=== PATIENT | female | born 1960 | race Caucasian/White ===

== ENCOUNTER 2016-06-01 04:39 | Emergency (ER) | payer OTHER ==
[~2016-06-01] VITALS: Ht 152.4 cm; Wt 66.5 kg
[2016-06-01 04:52] VITALS: Ht 152.4 cm; Wt 66.5 kg
[2016-06-01 06:30] LABS: URINE BLOOD (Dip) POC Trace-lysed (NEGATIVE)
[2016-06-01] MEDS ORDERED: HYDROCODONE/APAP (5/325) TAB PO ONE (06:30)
[2016-06-01 06:53] LABS: BASOPHILS % 0.3 % (0.0-2.0); EOSINOPHILS # 0.2 10^3/ul (0.0-0.5); EOSINOPHILS % 1.5 % (0.0-7.0); HEMATOCRIT 37.2 % (37.0-47.0); HEMOGLOBIN 12.6 g/dl (12.0-16.0); LYMPHOCYTES # 3.2 10^3/ul (0.8-2.9); LYMPHOCYTES % 27.1 % (15.0-51.0); MEAN CORPUSCULAR HEMOGLOBIN 28.6 pg (29.0-33.0); MEAN CORPUSCULAR VOLUME 84.3 fl (82.0-101.0); MEAN PLATELET VOLUME 8.6 fl (7.4-10.4); MONOCYTE # 0.9 10^3/ul (0.3-0.9); MONOCYTES % 7.9 % (0.0-11.0); NEUTROPHIL # 7.4 10^3/ul (1.6-7.5); NEUTROPHILS % 63.2 % (39.0-77.0); PLATELET COUNT 308 10^3/UL (140-440); RED BLOOD COUNT 4.41 10^6/ul (4.20-5.40); RED CELL DISTRIBUTION WIDTH 13.8 % (11.5-14.5); UNCORRECTED WBC 11.7 10^3/ul (4.8-10.8); WHITE BLOOD COUNT 11.7 10^3/ul (4.8-10.8)
[2016-06-01 06:54] LABS: ADD UMIC YES; URINE BILIRUBIN (Dip) NEGATIVE (NEGATIVE); URINE BLOOD (Dip) TRACE (NEGATIVE); URINE COLOR LT. YELLOW (YELLOW); URINE GLUCOSE (Dip) NEGATIVE (NEGATIVE); URINE KETONES (Dip) NEGATIVE (NEGATIVE); URINE LEUKOCYTE ESTERASE (Dip) 1+ (NEGATIVE); URINE NITRITE (Dip) NEGATIVE (NEGATIVE); URINE TOTAL PROTEIN (Dip) TRACE (NEGATIVE); URINE UROBILINOGEN (Dip) 0.2 E.U./dL (0.1-1.0)
--- NOTE | 2016-06-01 07:04 | RADRPT ---
PROCEDURE: CT Abdomen and Pelvis without contrast. CLINICAL INDICATION: Left lower quadrant pain. TECHNIQUE: Routine axial tomographic images of the abdomen and pelvis were obtained from the domes the diaphragm to the symphysis pubis. The patient was scanned withoutoral or intravenous contrast. Coronal and sagittal reformatted images were obtained from the axial source images. Images were re viewed on a high-resolution PACS workstation. The total exam CTDI equals 14.05 mGy and the total exa m DLP equals 794.88 mGy-cm. One or more of the following dose reduction techniques were used: Auto mated exposure control, adjustment of the mA and / or kV according to patient size, or use of iterat félix reconstruction technique. COMPARISON: CT abdomen and pelvis dated 10/16/2013 FINDINGS: The visualized portions of the lung bases demonstrate mild bilateral basilar atelectasis. Evaluat ion of the intra-abdominal solid organs is limited on this noncontrast examination. The liver appea rs normal in size. There is no intra or extrahepatic biliary dilatation. The gallbladder is unrema rkable by CT criteria. The spleen, pancreas, and adrenal glands are unremarkable. The kidneys are symmetric in size. No renal, ureteral, or bladder calculi are identified. No perine phric inflammatory changes are identified. The urinary bladder is grossly unremarkable. The bowel demonstrates normal course and caliber. There is no evidence of bowel obstruction. The ap pendix is unremarkable. There are diverticula throughout the colon. The uterus and adnexa are dc ssly unremarkable. No intraperitoneal free fluid, free air or abscess is identified. The aorta is n ormal in caliber and contains vascular calcifications. No retroperitoneal, mesenteric, or inguinal lymphadenopathy is identified. The osseous structures demonstrate degenerative changes at L5-S1 with intervertebral disc space narr owing and discogenic endplate changes. No significant subcutaneous soft tissue abnormalities are s een. IMPRESSION: 1. Limited, noncontrast CT of the abdomen and pelvis. No acute intra-abdominal abnormality identifie d. 2. Sigmoid diverticulosis. 3. Senescent changes with aortic atherosclerosis and degenerative changes of the spine. RPTAT: HH .Aislinn Aburto MD, MD Date Time Electronically viewed and signed by .Aislinn Aburto MD, on 06/01/2016 07:03 .Mary/
[2016-06-01 07:05] LABS: ALBUMIN 3.8 g/dl (3.3-4.9)
[2016-06-01 07:06] LABS: POTASSIUM 4.1 mmol/L (3.5-5.1)
[2016-06-01 07:08] LABS: ALBUMIN/GLOBULIN RATIO 0.86; BILIRUBIN,INDIRECT 0.1 mg/dl (0-1.1); BILIRUBIN,TOTAL 0.1 mg/dl (0.2-1.3); CALCIUM 9.3 mg/dl (8.4-10.2); CONDITION 1; CREATININE 0.67 mg/dl (0.44-1.00); TOTAL PROTEIN 8.2 g/dl (6.1-8.1)
[2016-06-01] MEDS ORDERED: CEPH-443 PO (07:18)
[2016-06-01] MEDS ORDERED: HYDR-906 PO (07:18)
--- NOTE | 2016-06-01 07:23 | ERD ---
ER Documentation Chief Complaint Date/Time DATE: 06/01/16 TIME: 07:21 Chief Complaint pt reports pain with urination HPI 56-year-old female comes in with suprapubic abdominal pain that radiates to her left lower quadrant over the past 1 day. She denies fever, chills, nausea, vomiting. ROS All systems reviewed and are negative except as per history of present illness. Medications Home Meds Active Scripts Hydrocodone/Acetaminophen ([place] 5-325 Tablet) 1 Each Tablet, 1 TAB PO Q6H Y for PAIN, #10 TAB Prov:AMANDA HAMILTON PA-C 06/01/16 Cephalexin* (Keflex*) 500 Mg Capsule, 500 MG PO TID for 7 Days, CAP Prov:AMANDA HAMILTON PA-C 06/01/16 Reported Medications [None] No Conflict Check 04/15/16 Allergies Allergies: Coded Allergies: morphine (Verified Allergy, Unknown, depression, 06/01/16) PMhx/Soc Medical and Surgical Hx: pt denies Surgical Hx History of Surgery: Yes (TUBAL LIGATION) Anesthesia Reaction: No Hx Neurological Disorder: No Hx Respiratory Disorders: No Hx Cardiac Disorders: No Hx Psychiatric Problems: No Hx Miscellaneous Medical Probl: No Hx Alcohol Use: No Hx Substance Use: No Hx Tobacco Use: No Physical Exam Vitals Vital Signs Date Time Temp Pulse Resp B/P Pulse Ox O2 Delivery O2 Flow Rate FiO2 06/01/16 04:52 98.0 78 20 134/68 95 Physical Exam General: Well-developed, well-nourished. The patient appears in no acute distress. HEENT: Head is normocephalic, atraumatic. No scleral icterus. Neck: Supple. Nontender. Lungs: Clear to auscultation. Normal air movement. Heart: Regular rate and rhythm. S1 and S2 are normal. No murmurs, gallops, or rubs. Abdomen: Soft, tender in left lower quadrant and suprapubic region, no rebound pain, no masses, no McBurney's tenderness, negative Vazquez sign nondistended. Bowel sounds are normoactive. Extremities: No clubbing or cyanosis. Normal pulses. Moving extremities x 4. No weakness. Neurologic: Alert and oriented 3. No focal deficits. Skin: Normal turgor. No rash or lesions. Result Diagram: 06/01/16 0632 06/01/16 0632 Results 24 hrs Laboratory Tests Test 06/01/16 06:31 06/01/16 06:32 Bedside Urine Blood Trace-lysed Bedside Urine Glucose (UA) Negative Bedside Urine Ketones (LAB) Negative Bedside Urine Leukocyte Esterase (L Trace Bedside Urine Nitrite (LAB) Negative Bedside Urine Protein (LAB) 1+ Bedside Urine pH (LAB) 6.5 Alanine Aminotransferase (ALT/SGPT) 25IU/L Albumin 3.8g/dl Albumin/Globulin Ratio 0.86 Alkaline Phosphatase 126IU/L Anion Gap 17 Aspartate Amino Transf (AST/SGOT) 18IU/L Basophils # 0.010^3/ul Basophils % 0.3% Blood Morphology Comment Blood Urea Nitrogen 12mg/dl Calcium Level 9.3mg/dl Carbon Dioxide Level 29mmol/L Chloride Level 102mmol/L Creatinine 0.67mg/dl Direct Bilirubin 0.00mg/dl Eosinophils # 0.210^3/ul Eosinophils % 1.5% Globulin 4.40g/dl Glucose Level 120mg/dl Hematocrit 37.2% Hemoglobin 12.6g/dl Indirect Bilirubin 0.1mg/dl Lipase 38U/L Lymphocytes # 3.210^3/ul Lymphocytes % 27.1% Mean Corpuscular Hemoglobin 28.6pg Mean Corpuscular Hemoglobin Concent 34.0g/dl Mean Corpuscular Volume 84.3fl Mean Platelet Volume 8.6fl Monocytes # 0.910^3/ul Monocytes % 7.9% Neutrophils # 7.410^3/ul Neutrophils % 63.2% Nucleated Red Blood Cells # 0.010^3/ul Nucleated Red Blood Cells % 0.0/100WBC Platelet Count 03362^3/UL Potassium Level 4.1mmol/L Red Blood Count 4.4110^6/ul Red Cell Distribution Width 13.8% Sodium Level 144mmol/L Total Bilirubin 0.1mg/dl Total Protein 8.2g/dl Urine Bilirubin NEGATIVE Urine Clarity CLEAR Urine Color LT. YELLOW Urine Epithelial Cells MODERATE Urine Glucose NEGATIVE% Urine Hemoglobin TRACE Urine Ketones NEGATIVE Urine Leukocyte Esterase 1+ Urine Microscopic RBC 2-5/HPF Urine Microscopic WBC 5-10/HPF Urine Nitrite NEGATIVE Urine Specific [place] 1.010 Urine Total Protein TRACE Urine Urobilinogen 0.2 E.U./dL Urine pH 6.5 White Blood Count 11.710^3/ul Current Medications Medications (Trade) Dose Ordered Sig/Sandy Route PRN Reason Start Time Stop Time Status Last Admin Dose Admin Acetaminophen/ Hydrocodone Bitart ([place] (5/325)) 1 tab ONCE ONCE PO 06/01/16 06:30 06/01/16 06:31 DC 06/01/16 06:35 PROCEDURE: CT Abdomen and Pelvis without contrast. CLINICAL INDICATION: Left lower quadrant pain. TECHNIQUE: Routine axial tomographic images of the abdomen and pelvis were obtained from the domes the diaphragm to the symphysis pubis. The patient was scanned withoutoral or intravenous contrast. Coronal and sagittal reformatted images were obtained from the axial source images. Images were reviewed on a high-resolution PACS workstation. The total exam CTDI equals 14.05 mGy and the total exam DLP equals 794.88 mGy-cm. One or more of the following dose reduction techniques were used: Automated exposure control, adjustment of the mA and / or kV according to patient size, or use of iterative reconstruction technique. COMPARISON: CT abdomen and pelvis dated 10/16/2013 FINDINGS: The visualized portions of the lung bases demonstrate mild bilateral basilar atelectasis. Evaluation of the intra-abdominal solid organs is limited on this noncontrast examination. The liver appears normal in size. There is no intra or extrahepatic biliary dilatation. The gallbladder is unremarkable by CT criteria. The spleen, pancreas, and adrenal glands are unremarkable. The kidneys are symmetric in size. No renal, ureteral, or bladder calculi are identified. No perinephric inflammatory changes are identified. The urinary bladder is grossly unremarkable. The bowel demonstrates normal course and caliber. There is no evidence of bowel obstruction. The appendix is unremarkable. There are diverticula throughout the colon. The uterus and adnexa are grossly unremarkable. No intraperitoneal free fluid, free air or abscess is identified. The aorta is normal in caliber and contains vascular calcifications. No retroperitoneal, mesenteric, or inguinal lymphadenopathy is identified. The osseous structures demonstrate degenerative changes at L5-S1 with intervertebral disc space narrowing and discogenic endplate changes. No significant subcutaneous soft tissue abnormalities are seen. IMPRESSION: 1. Limited, noncontrast CT of the abdomen and pelvis. No acute intra-abdominal abnormality identified. 2. Sigmoid diverticulosis. 3. Senescent changes with aortic atherosclerosis and degenerative changes of the spine. RPTAT: HH .Aislinn Aburto MD, MD Date Time Electronically viewed and signed by .Aislinn Aburto MD, MD on 06/01/2016 07 :03 Procedures/MDM 56-year-old female comes in with suprapubic abdominal pain, urinalysis shows 5- 10 white blood cells and is consistent with a urinary tract infection. CT abdomen of the pelvis was performed given her left lower quadrant pain, she does have evidence of diverticulosis however no diverticulitis. She is afebrile , without signs of pyelonephritis or sepsis, and is appropriate for outpatient management. Departure Diagnosis: Primary Impression: UTI (urinary tract infection) Condition: Good Patient Instructions: Understanding Urinary Tract Infections (UTIs) Additional Instructions: Llame al doctor MAANA y lance homer SHANI PARA DENTRO DE 1-2 PERLA.Dgale a la secretaria que nosotros le instruimos hacer esta shani.Avise o llame si mena condicin se empeora antes de la shani. Regresa aqui si peor o no mejor. AMANDA HAMILTON PA-C Jun 01, 2016 07:23
== END 2016-06-01 07:22 | disposition home or self-care (01) ==
LOC: FTE 04:39
DX: N39.0 Urinary tract infection, site not specified (principal)
CPT/HCPCS: 74176; 80053; 81001; 83690; 85025; Z7502; Z7610; 81003

== ENCOUNTER 2016-10-13 07:49 | Day surgery (SDC) | payer OTHER ==
[~2016-10-13] VITALS: Ht 152.4 cm; Wt 64.9 kg
[~2016-10-13 07:49] MED LIST: CEPH-443 PO; HYDR-906 PO
[2016-10-13 09:03] VITALS: Ht 152.4 cm; Wt 64.9 kg
[2016-10-13] MEDS ORDERED: PEPCID (09:13)
[2016-10-13] MEDS ORDERED: METFORMIN (09:13)
[2016-10-13] MEDS ORDERED: CHOLESTEROL MED (09:13)
[2016-10-13 09:29] VITALS: BP 155/72; PULSE 68; RESP 21
[2016-10-13] MEDS ORDERED: FENTAnyl 50 MCG/ML VIAL ONE (10:15)
[2016-10-13] MEDS ORDERED: MIDAZOLAM 1 MG/ML 2 ML INJ ONE ×2 (10:15)
[2016-10-13 10:29] VITALS: BP 99/55; PULSE 64; RESP 15
--- NOTE | 2016-10-13 11:33 | GILP ---
DATE OF PROCEDURE: 10/13/2016 NAME OF PROCEDURES: 1. Esophagogastroduodenoscopy and biopsy. 2. Colonoscopy. SURGEON: Maryann Thapa MD PREOPERATIVE DIAGNOSES: 1. Gastroesophageal reflux disease. 2. Screening colonoscopy. POSTOPERATIVE DIAGNOSES: 1. Gastroesophageal reflux disease. 2. Gastritis with erosions. 3. Gastric mucosal biopsies were taken for Helicobacter pylori test. 4. Colonoscopy all the way to the cecum. 5. Internal hemorrhoids. 6. No colon neoplasm was identified. INDICATION FOR THE PROCEDURE: Ms. Renetta Goodrich is a 56-year-old female patient who had chronic heartburn, not responding to therapy. The patient also needed screening colonoscopy. The procedures and possible complications are well explained to the patient, she understood and cons ented to the procedure. DESCRIPTION OF PROCEDURE: Under the influence of fentanyl and Versed, the gastroscope was carefully introduced into the esophagus and under direct vision, it was advanced to the stomach and through t he pylorus into the duodenal bulb and descending duodenum. FINDINGS: ESOPHAGUS: The patient had gastroesophageal reflux disease. There was no stricture or neoplasm. STOMACH: The patient had gastritis with erosions. Gastric mucosal biopsies were taken for H. pylor i test. DUODENUM: Normal. The colonoscope was carefully introduced in the rectum and under direct vision, it was advanced all the way to the cecum. FINDINGS: The patient had internal hemorrhoids. No colon neoplasm was identified. The patient tolerated the procedures very well and there was no complication from the procedures. A t the end of the procedures, she was awake with stable vital signs and she was discharged home to [facility] care of her family. IMPRESSION: Please see postoperative diagnoses. PLAN: 1. Omeprazole 40 mg p.o. q.a.m. 2. Await H. pylori test report. 3. Next screening colonoscopy in 10 years. Dictated By: MARYANN MOTTA/JERI Conf#: [id number] DID#: [id number]
== END 2016-10-13 14:49 | disposition home or self-care (01) ==
LOC: GIL 07:49
PROVIDERS: ATTEND Internal Medicine Gastroenterology
DX: Z12.11 Encounter for screening for malignant neoplasm of colon (principal); K21.9 Gastro-esophageal reflux disease without esophagitis; K29.60 Other gastritis without bleeding; K64.8 Other hemorrhoids
CPT/HCPCS: 43239; 45378; 82962; 87081; J2250; J3010; Z7610

== ENCOUNTER 2018-09-28 04:59 | Emergency (ER) | payer OTHER ==
[~2018-09-28] VITALS: Ht 157.5 cm; Wt 71.2 kg
[~2018-09-28 04:59] MED LIST changes: -CEPH-443 PO; +CHOLESTEROL MED; -HYDR-906 PO; +METFORMIN; +PEPCID
[2018-09-28 05:09] VITALS: Ht 157.5 cm; Wt 71.2 kg
[2018-09-28] MEDS ORDERED: KETOROLAC 30 MG INJ IV STA (06:02)
[2018-09-28] MEDS ORDERED: SOD CHLORIDE 0.9% 1,000 ML IV STA ×3 (06:02→07:10)
[2018-09-28] MEDS ORDERED: ONDANSETRON 4 MG INJ IV STA ×2 (06:02→07:07)
--- NOTE | 2018-09-28 06:26 | ERD ---
ER Documentation Chief Complaint Chief Complaint LOWER AP X 1 DAY HPI This is a 58-year-old female presents to the emergency complaining of lower abdominal pain for the past 24 hours. The pain is been persistent. Is progressively worsened. She stated it started around the suprapubic region and progressively worsened to the left lower quadrant. She did explain that she had mild frequency and urgency but no dysuria. She had no hematuria. She said no fevers or shaking or chills. She denies any back pain. She denies any pain of her lower extremities. She has no chest pain or shortness of breath. She states she is never had any similar symptoms in the past. She had one episode of nonbloody nonbilious emesis and did have one loose watery stool. She has not been on any antibiotics and no recent hospitalizations. ROS All systems reviewed and are negative except as per history of present illness. Medications Home Meds Reported Medications [Pepcid] No Conflict Check 10/13/16 [Metformin] No Conflict Check 10/13/16 [Cholesterol Med] No Conflict Check 10/13/16 Allergies Allergies: Coded Allergies: morphine (Verified Allergy, Unknown, depression, 06/01/16) PMhx/Soc History of Surgery: Yes (TUBAL LIGATION) Anesthesia Reaction: No Hx Neurological Disorder: No Hx Respiratory Disorders: No Hx Cardiac Disorders: Yes (OCCASSIONAL CHEST PAIN, WENT TO DOCTOR AND ALL TESTS NEGATIVE) Hx Psychiatric Problems: No Hx Miscellaneous Medical Probl: Yes (HYPERLIPIDEMIA) Hx Alcohol Use: Yes (OCASSIONAL) Hx Substance Use: No Hx Tobacco Use: No Smoking Status: Never smoker Physical Exam Vitals Vital Signs Date Temp Pulse Resp B/P (MAP) Pulse Ox O2 O2 Flow FiO2 Time Delivery Rate 09/28/18 66 17 116/58 98 Room Air 08:00 (77) 09/28/18 63 15 134/85 98 Room Air 05:35 (101) 09/28/18 97.9 73 20 128/78 97 05:09 (95) Physical Exam Constitutional:Well-developed. Well-nourished. HEENT:Normocephalic. Atraumatic.Pupils were equal round reactive to light. Very dry mucous membranes.No tonsillar exudates. Neck: No nuchal rigidity. No lymphadenopathy. No posterior cervical spine tenderness or step-offs. Respiratory: Not using accessory muscles of respiration.Lungs were clear to auscultation bilaterally. No rhonchi. No rales. No wheezing. Cardiovascular: Regular rate regular rhythm.No murmurs. No rubs were appreciated.S1, S2 normal. Distal pulses are palpable 2+ bilaterally. GI: Abdomen was soft. Suprapubic tenderness and left lower quadrant tenderness. Non Distended. No pulsatile abdominal masses or bruits. No rebound. No guarding. Bowel sounds were present and normal. Muscle skeletal: Full range of motion of both the upper and lower extremities bilaterally.Normal muscle tone.No assymetrical calf tenderness or swelling. Skin: No petechia, no purpura. No lesions on the palms or the soles of the feet. No maculopapular rash. NEURO: Patient was alert, awake, orientated x3.No facial droop. Gait observed and normal with no ataxia.Speech had regular rate and rhythm. No focal neurological deficits. Result Diagram: 09/28/18 0549 09/28/18 0549 Results 24 hrs Laboratory Tests Test 09/28/18 05:49 White Blood Count 10.1 10^3/ul Red Blood Count 4.93 10^6/ul Hemoglobin 13.5 g/dl Hematocrit 42.3 % Mean Corpuscular Volume 85.8 fl Mean Corpuscular Hemoglobin 27.4 pg Mean Corpuscular Hemoglobin Concent 31.9 g/dl Red Cell Distribution Width 13.4 % Platelet Count 285 10^3/UL Mean Platelet Volume 10.4 fl Immature Granulocytes % 0.200 % Neutrophils % 57.1 % Lymphocytes % 33.9 % Monocytes % 6.6 % Eosinophils % 1.7 % Basophils % 0.5 % Nucleated Red Blood Cells % 0.0 /100WBC Immature Granulocytes # 0.020 10^3/ul Neutrophils # 5.8 10^3/ul Lymphocytes # 3.4 10^3/ul Monocytes # 0.7 10^3/ul Eosinophils # 0.2 10^3/ul Basophils # 0.1 10^3/ul Nucleated Red Blood Cells # 0.0 10^3/ul Urine Color YELLOW Urine Clarity SLIGHTLY CLOUDY Urine pH 6.0 Urine Specific [place] 1.016 Urine Ketones NEGATIVE mg/dL Urine Nitrite NEGATIVE mg/dL Urine Bilirubin NEGATIVE mg/dL Urine Urobilinogen NEGATIVE mg/dL Urine Leukocyte Esterase 2+ Samm/ul Urine Microscopic RBC 1 /HPF Urine Microscopic WBC 4 /HPF Urine Squamous Epithelial Cells FEW /HPF Urine Bacteria FEW /HPF Urine Hemoglobin NEGATIVE mg/dL Urine Glucose NEGATIVE mg/dL Urine Total Protein NEGATIVE mg/dl Sodium Level 141 mmol/L Potassium Level 4.3 mmol/L Chloride Level 105 mmol/L Carbon Dioxide Level 29 mmol/L Anion Gap 7 Blood Urea Nitrogen 17 mg/dl Creatinine 0.59 mg/dl Est Glomerular Filtrat Rate mL/min > 60 mL/min Glucose Level 142 mg/dl Calcium Level 9.3 mg/dl Total Bilirubin 0.4 mg/dl Direct Bilirubin 0.00 mg/dl Indirect Bilirubin 0.4 mg/dl Aspartate Amino Transf (AST/SGOT) 19 IU/L Alanine Aminotransferase (ALT/SGPT) 16 IU/L Alkaline Phosphatase 132 IU/L Total Protein 8.0 g/dl Albumin 4.3 g/dl Globulin 3.70 g/dl Albumin/Globulin Ratio 1.16 Lipase 53 U/L Current Medications Medications Dose Sig/Sandy Start Time Status Last (Trade) Ordered Route PRN Stop Time Admin Dose Reason Admin Sodium 1,000 ml @ Q1H STAT 09/28/18 DC 09/28/18 Chloride 1,000 mls/hr IV 06:02 06:14 09/28/18 07:01 Ondansetron 4 mg ONCE STAT 09/28/18 DC 09/28/18 HCl (Zofran IV 06:02 06:13 Inj) 09/28/18 06:03 Ketorolac 30 mg ONCE STAT 09/28/18 DC 09/28/18 Tromethamine IV 06:02 06:14 (Toradol) 09/28/18 06:03 Sodium 1,000 ml @ Q1H STAT 09/28/18 DC 09/28/18 Chloride 1,000 mls/hr IV 07:07 07:36 09/28/18 08:06 1 mg ONCE STAT 09/28/18 DC 09/28/18 Hydromorphone IV 07:07 07:37 HCl 09/28/18 07:09 (Dilaudid) Ondansetron 4 mg ONCE STAT 09/28/18 DC 09/28/18 HCl (Zofran IV 07:07 07:37 Inj) 09/28/18 07:11 Sodium 1,000 ml @ Q1H STAT 09/28/18 DC 09/28/18 Chloride 1,000 mls/hr IV 07:10 07:37 09/28/18 08:09 Dicyclomine 20 mg ONCE ONCE 09/28/18 DC 09/28/18 HCl PO 07:30 07:37 (Bentyl) 09/28/18 07:31 IV Flush 10 ml STK-MED 09/28/18 DC 09/28/18 (NS 10 ml) ONCE .ROUTE 07:40 08:02 09/28/18 07:41 Sodium 100 ml @ ud STK-MED 09/28/18 DC 09/28/18 Chloride ONCE .ROUTE 07:40 08:03 09/28/18 07:41 Iohexol 150 ml STK-MED 09/28/18 DC 09/28/18 (Omnipaque ONCE .ROUTE 07:40 08:03 300mg/ ml) 09/28/18 07:41 Procedures/MDM This patient presented to the emergency department with abdominal pain and was seen and evaluated by myself. My differential diagnosis included but was not limited to abdominal aortic aneurysm, appendicitis, pancreatitis, perforated peptic ulcer, perforated viscus, Boerhaave's syndrome or visceral pain such as diverticulitis, DKA, esophagitis, hepatitis or bowel obstruction. The patient was placed on a manager cardiac cath, continuous pulse oximetry, and IV access was established by nursing staff. The patient was given IV Toradol and Zofran for analgesia control. This did not improve her symptoms. States she h as an allergy to morphine but the patient stated this makes her feel nauseous. She was given IV Dilaudid which significantly improved her symptoms. The patient's urinalysis was negative for urinary tract infection. She had repeat multiple physical examinations performed by myself focused on the a bdomen. She continued to have tenderness in the left lower quadrant. Therefore at this time I did feel is necessary to obtain a CT scan of the patient's abdomen. This was reviewed by the radiologist myself and indicate the followin. No CT findings to explain the patient's abdominal pain. 2. Few colonic diverticula without CT evidence of acute diverticulitis. The patient had significant improvement of her symptoms. She was also given Bentyl as she also had been complaining of loose watery stools which I did feel could be a viral etiology. I felt the patient be safely discharged home and she was able to tolerate oral intake. Her pain had improved. I also indicated she would benefit from an outpatient colonoscopy. Departure Diagnosis: Primary Impression: Diverticulosis Additional Impression: Abdominal pain Abdominal location: unspecified location Qualified Codes: R10.9 - Unspecified abdominal pain Condition: MOMO Johnson MD September 28, 2018 06:25
[2018-09-28] MEDS ORDERED: HYDROmorphONE 1 MG/ML SYG IV STA (07:07)
[2018-09-28] MEDS ORDERED: DICYCLOMINE 10 MG CAP PO ONE (07:30)
[2018-09-28] MEDS ORDERED: SOD CHLORIDE 0.9% 100 ML ONE (07:40)
[2018-09-28] MEDS ORDERED: IOHEXOL 300MG/ML 150 ML BTL ONE (07:40)
[2018-09-28 08:00] VITALS: BP 116/58; PULSE 66; RESP 17
[2018-09-28] MEDS ORDERED: IBUP800T48 PO (10:03)
== END 2018-09-28 10:14 | disposition home or self-care (01) ==
LOC: E/R 04:59
DX: K57.30 Diverticulosis of large intestine without perforation or abscess without bleeding (principal)
CPT/HCPCS: 36415; 74177; 80053; 81001; 83690; 85025; 96374; 96375; 96376; J1170; J1885; J2405; J7030; Q9967; Z7502; Z7610

== ENCOUNTER 2018-11-06 06:24 | Day surgery (SDC) | payer OTHER ==
[~2018-11-06] VITALS: Ht 160 cm; Wt 71.7 kg
[~2018-11-06 06:24] MED LIST changes: +IBUP800T48 PO
[2018-11-06 07:34] VITALS: Ht 160 cm; Wt 71.7 kg
[2018-11-06 07:43] VITALS: BP 138/65; PULSE 64; RESP 18
[2018-11-06] MEDS ORDERED: ATOR40TA68 PO (07:43)
[2018-11-06] MEDS ORDERED: [UNRECOGNIZED DRUG - OTHER] (07:43)
[2018-11-06] MEDS ORDERED: GABA300C16 PO (07:43)
[2018-11-06] MEDS ORDERED: METF-849 PO (07:43)
[2018-11-06] MEDS ORDERED: LIDOCAINE 4% SOLUTION 50 ML BTL ONE (08:21)
[2018-11-06] MEDS ORDERED: MIDAZOLAM 1 MG/ML 2 ML INJ ONE ×2 (09:13)
[2018-11-06] MEDS ORDERED: FENTAnyl 50 MCG/ML VIAL ONE (09:13)
[2018-11-06 09:29] VITALS: BP 127/58; RESP 16
== END 2018-11-06 10:27 | disposition home or self-care (01) ==
LOC: GIL 06:24
PROVIDERS: ATTEND Internal Medicine Gastroenterology
DX: Z12.11 Encounter for screening for malignant neoplasm of colon (principal); K57.30 Diverticulosis of large intestine without perforation or abscess without bleeding; K64.8 Other hemorrhoids; K64.4 Residual hemorrhoidal skin tags; K29.50 Unspecified chronic gastritis without bleeding; E11.9 Type 2 diabetes mellitus without complications
CPT/HCPCS: 43239; 45380; 88305; 88312; J2250; J3010; Z7610